=== PATIENT | female | born 1955 | race Caucasian/White ===

== ENCOUNTER → 2018-02-09 | Outpatient (CLI) | payer OTHER ==
[~2018-02-09] MED LIST: ADVA115A INH; CELE10TA9 PO; INDO50CA PO; LEVO150T7 PO
[2018-02-09 10:29] LABS: AUTOMATED NEUTROPHIL # 3.4 TH/MM3 (1.8-7.7); BASOPHIL % 0.6 % (0.0-2.0); EOSINOPHIL # 0.2 TH/MM3 (0-0.4); EOSINOPHIL % 2.9 % (0.0-4.0); HEMOGLOBIN 14.8 GM/DL (11.6-15.3); LYMPH % 30.8 % (9.0-44.0); LYMPHOCYTE # 1.7 TH/MM3 (1.0-4.8); MEAN CELL VOLUME 95.3 FL (80.0-100.0); MEAN CORPUSCULAR HGB CONC 33.5 % (32.0-36.0); MEAN PLATELET VOLUME 8.5 FL (7.0-11.0); MONO % 7.2 % (0.0-8.0); MONOCYTE # 0.4 TH/MM3 (0-0.9); NEUT % 58.5 % (16.0-70.0); PLATELET COUNT 274 TH/MM3 (150-450); RED BLOOD COUNT 4.62 MIL/MM3 (4.00-5.30); RED CELL DISTRIBUTION WIDTH 13.5 % (11.6-17.2); WHITE BLOOD COUNT 5.7 TH/MM3 (4.0-11.0)
[2018-02-09 14:14] LABS: AST (GOT) 18 U/L (15-37); BICARBONATE 28.4 MEQ/L (21.0-32.0); BLOOD UREA NITROGEN 12 MG/DL (7-18); CALCIUM 9.1 MG/DL (8.5-10.1); CHLORIDE 107 MEQ/L (98-107); CHOLESTEROL 215 MG/DL (120-200); CREATININE 0.73 MG/DL (0.50-1.00); GLOMERULAR FILTRATION RATE 80 ML/MIN (>89); GLUCOSE,FASTING 95 MG/DL (74-99); SODIUM (NA) 141 MEQ/L (136-145); TRIGLYCERIDES 88 MG/DL (42-150)
[2018-02-09 14:23] LABS: ALKALINE PHOSPHATASE 59 U/L (45-117); ALT (GPT) 25 U/L (10-53); CHOLESTEROL/ HDL RATIO 3.18 RATIO; FREE T4 1.16 NG/DL (0.76-1.46); HDL CHOLESTEROL 67.5 MG/DL (40.0-60.0); LDL CHOLESTEROL 130 MG/DL (0-99); TOTAL PROTEIN 7.4 GM/DL (6.4-8.2)
[2018-02-09 14:26] LABS: BILIRUBIN, URINE NEG (NEG); BLOOD, URINE NEG (NEG); GLUCOSE,URINE NEG (NEG); KETONE, URINE NEG (NEG); NITRITE,URINE NEG (NEG); PH, URINE 5.5 (5.0-8.5); SQUAMOUS EPITHELIAL CELL URINE 1 /hpf (0-5); URINE COLOR LIGHT-YELLOW (YELLW/STRAW); URINE LEUKOCYTE ESTERASE NEG (NEG)
== END ==
LOC: OLAB 09:29
PROVIDERS: ATTEND Internal Medicine
DX: Z00.00 Encounter for general adult medical examination without abnormal findings (principal); E03.9 Hypothyroidism, unspecified
CPT/HCPCS: 36415; 80053; 80061; 81001; 84439; 84443; 85025

== ENCOUNTER → 2018-03-26 | Outpatient (CLI) | payer OTHER ==
[~2018-03-26] VITALS: Ht 154.9 cm; Wt 66.0 kg
[~2018-03-26] MED LIST changes: +CELE10TA PO; -CELE10TA9 PO; +CHLORHEXIDINE GLUCONATE 2 % 1 PACK (2 CLOTHS) TOPICAL PRN; +LACTATED RINGER'S 1000 ML IV PRN; +LIDOCAINE HCL 1% PF 5 ML SYRINGE OTHER ONE; +METOPROLOL TARTRATE 25 MG TAB PO PRN; +ONDANSETRON HCL 4 MG/2 ML VIAL ONE; +POVIDONE IODINE 5% (ANTISEPSIS KIT) 4 APPLICATIONS EACH NARE PRN; +PROPOFOL 200 MG/20 ML AMP IV ONE; +SODIUM CHLORID 0.9% 500 ML IV PRN
[2018-03-26 15:57] VITALS: BP 142/91; PULSE 62; RESP 16; TEMP 97; O2SAT 95
--- NOTE | 2018-03-26 16:51 | MR ---
cc: Raymon Duarte MD DATE: 03/26/2018 PROCEDURE PERFORMED: Colonoscopy and upper endoscopy. INDICATIONS FOR PROCEDURE: Evaluation of epigastric pain and surveillance colonoscopy for history of colon polyps. Photographs and biopsies were taken. Premedication administered by Anesthesiology. Monitoring was constant pulse oximetry, EKG, blood pressure monitor. DESCRIPTION OF PROCEDURE: Informed consent was obtained, the procedure, risks and benefits were explained, including risks of bleeding, sepsis, perforation, risks of anesthesia. The patient was placed in left lateral position. A video endoscope was inserted into the esophagus. The esophagus revealed an irregular Z-line with a small islet of a possible Last's. This was biopsied to rule out Last's. The stomach was entered. The gastric mucosa was visualized. In the antrum, there was minimal gastritis noted. Biopsies were taken to rule out H pylori. On a retroflexed view, the cardia and fundus were normal. The scope was passed through the pyloric ring into the first, second and third portion of the duodenum. The duodenal mucosa was unremarkable. The scope was gradually withdrawn. The patient was repositioned and colonoscopy was performed. Video colonoscope was inserted in the rectum and passed to the rectosigmoid. There were several small hyperplastic-appearing polyps noted 4 mm or so in size. Several of these were biopsied for sampling. As the scope was advanced through the descending colon, there appeared to be some residual stool noted. This was lavaged asbest possible. The transverse colon was entered. Again, some stool was scattered throughout with some residual food and fecal debris. The scope was passed through the ascending colon to the cecum. The cecum was filled with stool. This was lavaged as best possible. Approximately 85% of the cecum was visualized. There was some residual stool that could not be evacuated successfully inhibiting a full examination and small lesions could be missed. The proximal ascending colon also had some residual stool and smaller lesions once again could be missed. The rest of the ascending colon was unremarkable. The transverse colon was unremarkable, but again because of scattered residual stool and debris, small lesions could be missed. The scope was gradually withdrawn. In the rectum, I did not appreciate any masses. Junctional hemorrhoids were noted. Retroflex was not accomplished. The patient tolerated the procedure well. No immediate complications were noted. IMPRESSION: 1. Irregular Z-line, biopsied, rule out Last esophagus. 2. Minimal gastritis, biopsied, rule out Helicobacter pylori. 3. Colonoscopy prep was marginal at best with residual stool and debris; as noted above, small lesions could be missed. The patient did have several small hyperplastic-appearing polyps in the distal sigmoid and rectosigmoid region where biopsies were taken. PLAN: Continue acid suppressive therapy. We will followup biopsies taken today. We will discuss with the patient whether or not she would like to proceed with a repeat colonoscopy at some point, as the prep was marginal with residual stool present. Small lesions could be missed because of this. This did inhibit visualization. We will follow up as an outpatient. MD ANU Petersen/ULYSSES , 03:33 PM , 04:50 PM
--- NOTE | 2018-03-26 17:20 | EKG ---
Date Performed: 03/26/2018 Time Performed: 12:20:53 PTAGE: 62 years EKG: Sinus rhythm NORMAL ECG PREVIOUS TRACING : 09/11/2016 08.16 Since the previous tracing, no significant change noted DOCTOR: Milad Dye Interpretating Date/Time 03/26/2018 17:18:02
== END ==
LOC: HSDC 11:54
PROVIDERS: ATTEND Internal Medicine Gastroenterology
DX: K20.9 Esophagitis, unspecified (principal); R10.13 Epigastric pain; R14.0 Abdominal distension (gaseous); Z86.010 Personal history of colon polyps; K63.5 Polyp of colon; K64.8 Other hemorrhoids; R73.03 Prediabetes; J45.909 Unspecified asthma, uncomplicated; Z87.891 Personal history of nicotine dependence
CPT/HCPCS: 00813; 43239; 45380; 88305; 88312; 93005; J2405; J3010; J7120